=== PATIENT | female | born 1990 ===

== ENCOUNTER 2017-03-05 18:33 | Inpatient (IN) | payer MEDICAID ==
[2017-03-05 18:56] VITALS: BMI 29.2
[2017-03-05 21:18] LABS: BASO % 0.3 % (0.0-2.0); EOS # 0.1 K/uL (0.0-0.7); EOS % 0.5 % (0.0-4.0); HEMATOCRIT 32.4 % (34.0-47.0); LYMPH # 2.7 K/uL (1.0-4.3); LYMPH % 19.1 % (20.0-40.0); MEAN CELL VOLUME 90.1 fl (81.0-99.0); MEAN CORPUSCULAR HGB CONC 33.3 g/dL (33.0-37.0); MEAN PLATELET VOLUME 8.7 fl (7.2-11.7); MONO # 0.8 K/uL (0.0-0.8); MONO % 5.7 % (0.0-10.0); NEUT # 10.6 K/uL (1.8-7.0); NEUT % 74.4 % (50.0-75.0); RED CELL DISTRIBUTION WIDTH 13.6 % (11.5-14.5); WHITE BLOOD COUNT 14.3 K/uL (4.8-10.8)
[2017-03-05] MEDS ORDERED: Nalbuphine 20 mg/ml Inj (1 ml) IVP PRN (23:33)
[2017-03-06] MEDS ORDERED: Lactated Ringer's 1,000 ML IV SCH (04:15)
[2017-03-06] MEDS ORDERED: Fentanyl/Bupivacaine HCl 250 ML EPI ONE (04:59)
[2017-03-06] MEDS ORDERED: Bupivacaine HCl 0.25% PF (10 ml) Inj ONE (05:00)
[2017-03-06] MEDS: Lactated Ringer's 1,000 ML IV SCH ×2 (05:15→08:55)
[2017-03-06 07:45] VITALS: BP 116/53; PULSE 71; RESP 17; TEMP 98.3; O2SAT 100
[2017-03-06] MEDS ORDERED: ePHEDrine 50 mg/ml Inj ONE (08:05)
[2017-03-06] MEDS ORDERED: Lidocaine 1% Inj (20ml) ONE (11:21)
[2017-03-06] MEDS ORDERED: Oxycodone/Acetaminophen 5/325 mg Tab PO PRN ×3 (16:52→17:07)
[2017-03-06] MEDS ORDERED: Benzocaine/Menthol SPRAY TOP PRN ×2 (16:52→17:07)
[2017-03-06] MEDS: Oxycodone/Acetaminophen 5/325 mg Tab PO PRN (20:49)
[2017-03-07 07:50] LABS: HEMATOCRIT 29.8 % (34.0-47.0); MEAN CELL VOLUME 90.6 fl (81.0-99.0); MEAN CORPUSCULAR HEMOGLOBIN 29.9 pg (27.0-31.0); RED CELL DISTRIBUTION WIDTH 13.8 % (11.5-14.5); WHITE BLOOD COUNT 15.6 K/uL (4.8-10.8)
[2017-03-07] MEDS: Multivitamin With Minerals Tab PO SCH (08:28)
--- NOTE | 2017-03-07 08:43 | OBDS ---
DELIVERY PERSONNEL Delivery Doctor: Angel Stewart MD Navigation Teacher: Jessi Silvestre RN Anesthesiologist: Brittany More MD MATERNAL INFORMATION Delivery Anesthesia: Epidural Medications in Delivery: pitocin 20 units in 1L Estimated Blood Loss (ml): 200 Placenta Cultured: No Maternal Complications: None Provider Comments: Normal spontaneous vaginal delivery. Patient delivered viable female with Apgars of 9 and 9 at one and 5 minutes respectively. I nfant delivered via SHEY position, compound hand presentation, nuchal cord 2 loose and easily reduce d. Lacerations repaired, as above. Placenta delivered spontaneously. Uterus firm and appropriately he mostatic following delivery. Patient tolerated delivery and repair. No complications. Estimated blood loss 200 mL. LABOR SUMMARY EDC: 03/03/2017 00:00 No. Babies in Womb: 0 Attempted: No Labor Anesthesia: None LABOR INFORMATION Reason for Induction: Postterm Onset of Labor: 03/06/2017 09:10 Complete Dilatation: 03/06/2017 11:16 Cervical Ripening Agents: Cervidil Oxytocin: N/A Group B Beta Strep: Negative Steroids Given: None Reason Steroids Not Administered: Not Applicable MEMBRANES Membranes Rupture Method: Spontaneous Rupture of Membranes: 03/06/2017 11:40 Length of Rupture (hrs): 1.72 Amniotic Fluid Color: Clear Amniotic Fluid Amount: Moderate Amniotic Fluid Odor: Normal STAGES OF LABOR Stage 1 hrs: 2 Stage 1 min: 6 Stage 2 hrs: 2 Stage 2 min: 7 Stage 3 hrs: 0 Stage 3 min: 5 Total Time in Labor hrs: 4 Total Time in Labor min: 18 VAGINAL DELIVERY Episiotomy: None Laceration Extension: Second Degree Laceration Type: Perineal Laceration Repair Note: Second-degree midline perineal laceration and first-degree left lateral vagi nal laceration. Areas infiltrated with 1% lidocaine. Lacerations repaired with 2.0. Without complicat ion. Patient tolerated repair well. BABY A INFORMATION Delivery Date/Time: 03/06/2017 13:23 Method of Delivery: Vaginal Born in Route : No : N/A Forceps: N/A Vacuum Extraction: N/A Shoulder Dystocia : No SHOULDER DYSTOCIA BABY A Delivery Date/Time: 03/06/2017 13:23 PRESENTATION/POSITION BABY A Presentation: Compound Cephalic Presentation: Vertex Vertex Position: Left Occipital Anterior Breech Presentation: N/A PLACENTA INFORMATION BABY A Placenta Delivery Time : 03/06/2017 13:28 Placenta Method of Delivery: Spontaneous Placenta Status: Delivered SCORES BABY A Heart Rate 1 min: >100 bpm Resp Effort 1 min: Good Cry Reflex Irritability 1 min: Cough or Sneeze or Pulls Away Muscle Tone 1 min: Active Motion Color 1 min: Body Hern[place], Extremities Blue SCORE 1 MIN: 9 Heart Rate 5 min: >100 bpm Resp Effort 5 min: Good Cry Reflex Irritability 5 min: Cough or Sneeze or Pulls Away Muscle Tone 5 min: Active Motion Color 5 min: Body Hernando, Extremities Blue Resuscitation Effort 5 min: N/A SCORE 5 MIN: 9 INFORMATION BABY A Gestational Status: Term Infant Outcome : Liveborn Infant Condition : Stable Sex: Female IDENTIFICATION/MEDS BABY A ID Band Number: [id number] ID Band Location: Left Leg; Left Arm WEIGHT/LENGTH BABY A Infant Birthweight (gms): 3360 Infant Weight (lb): 7 Weight (oz): 6 CORD INFORMATION BABY A No. Cord Vessels: 3 Nuchal Cord : Around Neck x2, Loose Infant Suction: Mouth; Nose ASSESSMENT BABY A Infant Complications: Multiple Variable Decels Physical Findings at Delivery: Within Normal Limits Respirations: Appears Normal Chili Maker/ALS Called : No Infant Care By: S rideg/E Alyssa Transferred To: Nursery
[2017-03-07] MEDS ORDERED: Multivitamin With Minerals Tab PO SCH (09:00)
--- NOTE | 2017-03-07 09:11 | OBPPN ---
Datetime: 03/07/2017 09:07 PP Pain Prov: Within normal limits PP Abdomen/Uterus Prov: Normal PP Lochia Prov: Normal PP Extremities Prov: Normal PP Impression Prov: Normal progression PP Plan Prov: Continue present management PP Progress Note Prov: PPD 1 s/p , doing well, breast and bottle feeding Continue current management Vital Signs Provider PP: Reviewed
[2017-03-07] MEDS: Oxycodone/Acetaminophen 5/325 mg Tab PO PRN ×2 (09:21→22:28)
--- NOTE | 2017-03-08 08:11 | OBDCSUM ---
Datetime: 03/08/2017 08:08 Discharged to, Provider: Home Follow up at, Provider: Dr. Stewart Disch Instr Activity: Normal activity; May Shower Disch Instr Diet: Regular Discharge Instructions, Provider: Routine instructions given Discharge Diagnosis, Provider: Term Delivered Discharge Time: 03/08/2017 08:08 Follow up in weeks, Provider: 6 weeks Contraception discussed, Prov: No Disch Activity Restrictions: No exercising; No lifting; No sexual activity; Nothing in vagina - Inte rcourse, tampons, douche
--- NOTE | 2017-03-08 08:11 | OBPPN ---
Datetime: 03/08/2017 08:04 PP Pain Prov: Within normal limits PP Nausea Prov: Denies PP Abdomen/Uterus Prov: Normal PP Lochia Prov: Normal PP Extremities Prov: Normal PP Progress Prov: Normal PP Progress Note Prov: PPD 2 s/p , breast and bottle feeding, c/o constipation Senokot ordered Rx's motrin and ferrous sulfate given Discharge home today Vital Signs Provider PP: Reviewed; Within Normal Limits
[2017-03-08] MEDS ORDERED: Docusate-Senna 50 mg-8.6 mg Tab PO STA (08:13)
[2017-03-08] MEDS: Multivitamin With Minerals Tab PO SCH (08:27)
--- NOTE | 2017-03-14 14:19 | OBHP ---
Datetime: 03/05/2017 19:01 IP Adm Impression: Postterm, intrauterine ; No Active Labor; Intact Membranes IP Admit Plan: Admit to unit; Initiate labor induction protocol; Observation/Evaluation Admit Comment, IP Provider: 26 yr at 40.2 wks GA presents to [facility] for IOL for post dates. Denie s vaginal bleeding, LOF or ctx's. + movements. Patient states she continued care with Dr. Stewart at 25 wks GA, initial care was at [facility]. Last clinic visit was friday, per pa edilberto was barely dilated 1cm. Denies any complications or abnormal test/labs with this . Rachel vasquez has no concerns or complaints at this time. care/course: GBS neg, Rhogam x 2 doses, UTI treated with Bactrim 1 month ago, other lab r esults not available at this time PMHx: none SurHx: none SocHx: denies Etoh, smoking/drugs Meds: none (stopped PNV 1 week ago because they made her feel sick) Allergies: Amoxicillin -rash PE: VSS, patient in no acute distress Cardiac: S1 S2 normal, no murmurs/rubs/gallops Lungs: CTABL Abd: gravid, nontender Ext: trace edema Monitoring: FHR 140 bpm, moderate variability 6-25 bpm, accelerations 15x15, no decels, Allie gory I strip A: 26yr at 40.2 wks GA for IOL, not in labor P: -Admit to labor and delivery -IV insertion, CBC, Type and Screen -Cervidil 10mg vag once -Anesthesia consult -Continuous monitoring -Monitor labor progress Scarlet Yepez M.D. PGY1 [facility] ADDENDUM: PT seen _ examined by me. Agree with assessment and plan. Extremities - PN: Normal Abdomen - PN: Normal Back - PN: Normal Lungs - PN: Normal Heart - PN: Normal Thyroid - PN: Normal Neurologic - PN: Normal HEENT - PN: Normal General - PN: Normal FHR - Baseline A Provider: 140 Gestation - Est Wks by US: 40.2 EGA AdmitDate IP: 40.2 Vital Signs Provider: Reviewed; Within Normal Limits IP Indication for Induction: Postterm IP Chief Complaint: Scheduled induction of labor NICHD Variability Prov Fetus A: Moderate 6-25bpm NICHD Accel Fetus A IP Provider: [id number] FHR Category Provider Fetus A: Category I NICHD Decel Fetus A IP Provider: None Genitourinary Exam: Not Done DTRs - PN: Normal
== END 2017-03-08 15:20 | disposition home or self-care (01) | DRG 373 ==
LOC: H.EROB2 18:33 → MERGE 18:56 → H.L&D 18:56 → H.OB/GYN 03-06 16:23
PROVIDERS: ADMIT Obstetrics & Gynecology; ATTEND Obstetrics & Gynecology
PROC: 4A1HXCZ Monitoring of Products of Conception, Cardiac Rate, External Approach (ICD-10-PCS; 2017-03-05)
PROC: 10E0XZZ Delivery of Products of Conception, External Approach (ICD-10-PCS; principal; 2017-03-06)
PROC: 0KQM0ZZ Repair Perineum Muscle, Open Approach (ICD-10-PCS; 2017-03-06)
DX: O48.0 Post-term pregnancy (principal); K59.00 Constipation, unspecified; O32.6XX0 Maternal care for compound presentation, not applicable or unspecified; O76 Abnormality in fetal heart rate and rhythm complicating labor and delivery; O69.81X0 Labor and delivery complicated by cord around neck, without compression, not applicable or unspecified; O70.1 Second degree perineal laceration during delivery; Z3A.40 40 weeks gestation of pregnancy; Z37.0 Single live birth